=== PATIENT | male | born 1970 | race Caucasian/White ===

== ENCOUNTER 2020-01-19 10:51 | Emergency (ER) | payer SELFPAY ==
[~2020-01-19] VITALS: Ht 170.2 cm; Wt 65.9 kg
[2020-01-19 10:53] VITALS: Ht 170.2 cm; Wt 65.9 kg
[2020-01-19 11:51] LABS: CALC OSMOLALITY 261 mosm/kg (275-300); CALCIUM 8.2 mg/dL (8.5-10.1); CARBON DIOXIDE 25.9 mmol/L (21.0-32.0); CHLORIDE - SERUM 98 mmol/L (98-107); CREATININE - SERUM 0.8 mg/dL (0.6-1.3); GLUCOSE 75 mg/dL (74-106); POTASSIUM - SERUM 3.1 mmol/L (3.5-5.1); SODIUM 133 mmol/L (136-145); UREA NITROGEN 5 mg/dL (7-18); eGFR NON AFRICAN AMERICAN > 90 mL/min (90-120)
[2020-01-19 12:01] LABS: ALBUMIN 3.6 g/dL (3.4-5.0); ALKALINE PHOSPHATASE 133 U/L (30-120); ALT (SGPT) 58 U/L (10-68); BILIRUBIN - TOTAL 0.36 mg/dL (0.2-1.3); MAGNESIUM - SERUM 1.9 mg/dL (1.8-2.4)
[2020-01-19 12:08] LABS: UDS - AMPHET NEGATIVE QUAL (NEGATIVE); UDS - BARB NEGATIVE QUAL (NEGATIVE); UDS - BENZO NEGATIVE QUAL (NEGATIVE); UDS - COCAINE NEGATIVE QUAL (NEGATIVE); UDS - OPIATE NEGATIVE QUAL (NEGATIVE); UDS - PCP NEGATIVE QUAL (NEGATIVE); UDS - THC NEGATIVE QUAL (NEGATIVE)
[2020-01-19 12:16] LABS: BASOPHILS 0.3 % (0-2); EOSINOPHILS 0.7 % (0-7); HEMATOCRIT 44.4 % (42.0-54.0); IMMATURE GRANULOCYTES 0.1 % (0-5); LYMPHOCYTES 12.3 % (15-50); MCH 32.8 pg (26.0-34.0); MCHC 33.8 g/dL (31.0-37.0); MCV 96.9 fL (80.0-100.0); MEAN PLATELET VOLUME 10.1 fL (7.4-10.4); MONOCYTES 10.1 % (2-11); NEUTROPHILS 76.5 % (40-80); PLATELET COUNT 86 10x3/uL (130-400); RBC 4.58 10x6/uL (4.20-6.10); RDW 13.4 % (11.5-14.5); WBC 6.8 10x3/uL (4.8-10.8)
[2020-01-19 12:17] LABS: PROTEIN - SERUM 7.9 g/dL (6.4-8.2)
[2020-01-19 12:22] LABS: BILIRUBIN NEGATIVE (NEGATIVE); KETONE NEGATIVE (NEGATIVE); NITRITE NEGATIVE (NEGATIVE); UROBILINOGEN NORMAL (NORMAL)
[2020-01-19 14:11] LABS: PLATELET ESTIMATE DECREASED; ROULEAUX OCC
[2020-01-20 05:29] VITALS: BP 146/81
== END 2020-01-20 05:29 | disposition home or self-care (01) ==
LOC: D.ER 10:51
PROVIDERS: Emergency Medicine
DX: F10.129 Alcohol abuse with intoxication, unspecified (principal); Y90.8 Blood alcohol level of 240 mg/100 ml or more

== ENCOUNTER 2020-09-20 18:39 | Emergency (ER) | payer BC ==
[~2020-09-20] VITALS: Ht 170.2 cm; Wt 75.0 kg
[2020-09-20 18:44] VITALS: Ht 170.2 cm; Wt 75.0 kg
[2020-09-20] MEDS ORDERED: HYDROCODON-ACE1 EA10 PO (21:06)
[2020-09-21 00:56] VITALS: BP 134/82
== END 2020-09-21 00:59 | disposition home or self-care (01) ==
LOC: D.ER 18:39
DX: S32.029A Unspecified fracture of second lumbar vertebra, initial encounter for closed fracture (principal); W19.XXXA Unspecified fall, initial encounter; Y93.9 Activity, unspecified; Y92.9 Unspecified place or not applicable

== ENCOUNTER 2020-10-18 19:25 | Emergency (ER) | payer BC ==
[~2020-10-18] VITALS: Ht 182.9 cm; Wt 77.3 kg
[~2020-10-18 19:25] MED LIST: HYDROCODON-ACE1 EA10 PO
[2020-10-18 19:30] VITALS: BP 125/88; Ht 182.9 cm; Wt 77.3 kg
[2020-10-18] MEDS ORDERED: NAPROSYN500 MG PO (20:57)
== END 2020-10-18 21:41 | disposition home or self-care (01) ==
LOC: D.ER 19:25
DX: S32.029A Unspecified fracture of second lumbar vertebra, initial encounter for closed fracture (principal); W01.0XXA Fall on same level from slipping, tripping and stumbling without subsequent striking against object, initial encounter; Y93.9 Activity, unspecified; Y92.9 Unspecified place or not applicable